=== PATIENT | female | born 1955 | race Caucasian/White ===

== ENCOUNTER → 2021-07-14 14:22 | Outpatient (BNVA) | payer MEDICARE, MEDICAID, SELFPAY | PROVIDERS: PCP Internal Medicine; Visit Provider Nurse Practitioner Family | DX: R25.1 Tremor, unspecified (principal); R53.1 Weakness; E34.8 Other specified endocrine disorders | CPT/HCPCS: 99212 ==

== ENCOUNTER → 2022-01-21 13:34 | Outpatient (BNVA) | payer OTHER, SELFPAY | PROVIDERS: PCP Internal Medicine; Visit Provider Nurse Practitioner Family | DX: R25.1 Tremor, unspecified (principal); R53.1 Weakness | CPT/HCPCS: 99212 ==

== ENCOUNTER → 2022-09-29 14:19 | Outpatient (BNVA) | payer OTHER, SELFPAY | PROVIDERS: PCP Internal Medicine; Visit Provider Nurse Practitioner Family | DX: R25.1 Tremor, unspecified (principal) | CPT/HCPCS: 99212 ==

== ENCOUNTER 2023-05-15 13:55 | Outpatient (AMB) | payer OTHER, SELFPAY ==
--- NOTE | 2023-05-15 13:59 | A.OFFVIS_ITS ---
Intake Vital Signs 05/15/23 13:59 05/15/23 14:04 Height 4 ft 10 in 4 ft 10 in Weight 181 lb BMI 37.8 Pulse 93 Pulse Source Pulse Oximeter Pulse Oximetry (%) 97 Oxygen Delivery Method Room Air Intake Visit Reasons: 6m follow up-Confirmed Intake Note: Patient presents for 6 month follow up. no issues or concerns today Allergies acetaminophen [From Percocet] Allergy (Mild, Verified 05/15/23 14:01) Unknown azithromycin Allergy (Mild, Verified 05/15/23 14:01) Unknown cefuroxime Allergy (Mild, Verified 05/15/23 14:01) Unknown Iodinated Contrast Media Allergy (Mild, Verified 05/15/23 14:01) Unknown oxycodone [From Percocet] Allergy (Mild, Verified 05/15/23 14:01) Unknown Penicillins Allergy (Mild, Verified 05/15/23 14:01) Unknown red dye Allergy (Mild, Verified 05/15/23 14:01) Rash tramadol Allergy (Mild, Verified 05/15/23 14:01) Unknown erythromycin base Allergy (Verified 05/15/23 14:01) Unknown Medication List - Last Reconciled 05/15/23 by Flory Gillette, EMEKA albuterol sulfate 90 mcg/actuation (Ventolin HFA) 2 puffs inhalation Q4-6H PRN albuterol sulfate mg inhalation fluticasone propionate 50 mcg/actuation 1 spray intranasal DAILY levothyroxine 75 mcg PO DAILY loratadine 10 mg PO DAILY mecobalamin (vitamin B12) 1,000 mcg PO DAILY metformin 500 mg PO BID sertraline 50 mg PO DAILY simvastatin 5 mg PO DAILY HPI HPI Comments History of Present Illness Details 67-yr-old female presents for f/u visit of tremor and headache. In early Apr, had a brief Hosp eval for the Flu. States she is feeling better now. She states she has been dx'd w/ DM type II- managed on metformin and advised to lose weight. States she does not eat many things. States she cannot eat vegetables- she is allergic to all vegetables . She shares a handwritten list of her extensive allergy testing results. Has not seen an department head college or university in some time. She is nervous to see an department head college or university because every time they do testing, she is told that she cannot eat even more food. Also new dx of HLD- started on low dose statin. Her thyroid supplement was also adjusted. She has a [employer] who helpd w/ cooking and housework. Sometimes she will notice her BUE hand/arms shake, more on the right. She notes that if she bends over to tie her shoe, her right arm will start shaking even before trying to tie her shoe. She is able to tie her shoe. Head tremor/jerks at times. Neck is not as tight, but may click w/o pain at times.. Her legs may be jumpy- especially if stressed. Sometimes has nocturnal leg cramp- from feet upwards- that resolves w/ ROM and walking. Sometimes can have leg pain f/b low back pain if she stands for too long and is not keeping her back straight. She is trying to stay active- even when watching TV she is trying to do other things/activities. Has noticed that she can start to doze off when inactive even though she sleeps well at night, can wake up gasping, may snore, has had difficulty breathing through her nose for a long time. Has never had a sleep study. Also walking and doing neck, BUE/BLE exercises, using a 5lb weight for some UE exercises. [facility] Medical History (Updated 05/15/23 @ 16:21 by EMEKA Noble) HLD (hyperlipidemia) Diabetes mellitus, type II TERESSA (generalized anxiety disorder) Surgical History History of hysterectomy History of eye surgery History of bilateral carpal tunnel release History of cholecystectomy Family History Father No problems noted. Mother Parkinsons Social History Alcohol intake: never Patient Tobacco Use Status: Never used Tobacco Questionnaire [place] Sleepiness Scale Questions Sitting and reading: high chance of dozing Watching TV: high chance of dozing Sitting inactive in a theater, movie etc.: high chance of dozing As a passenger in a car for an hour without break: would never doze Lying down in the afternoon when circumstances permit: high chance of dozing Sitting and talking to someone: would never doze Sitting quietly after lunch without alcohol: high chance of dozing In a car, while stopped for a few minutes in the traffic: would never doze ESS < 10: normal, ESS > 12: pathologic: 15 Physical Exam Vital Signs: Last Vital Signs Pulse 93 05/15/23 14:04 Pulse Ox 97 05/15/23 14:04 Oxygen Delivery Method Room Air 05/15/23 14:04 BMI result Body Mass Index 37.8 Const General: cooperative and no acute distress Orientation/consciousness: patient oriented x3 Resp Effort & Inspection: normal respiratory effort and able to speak in complete sentences Neuro Other: A&O x's 3 BUE R > L postural tremor. mild intermittent LLE rest tremor. FFM- mildly decreased Foot taps- decreased w/ poor fluidity. Foot taps ok. Gait steady gait. General: patient oriented x3 Cranial nerves: Yes CN's II-XII intact bilaterally Cognition (Neuro): normal cognition Psych Appearance: grossly normal Mental Status: mental status grossly normal Speech and movement: Normal speech and movement present Affect: normal affect Attitude: cooperative Assessment & Plan Assessment & Plan (1) Tremor: Code(s): R25.1 - Tremor, unspecified (2) Snoring: Code(s): R06.83 - Snoring (3) Excessive daytime sleepiness: Code(s): G47.19 - Other hypersomnia (4) Obesity, Class II, BMI 35-39.9: Code(s): E66.9 - Obesity, unspecified (5) Multiple food allergies: Code(s): Z91.018 - Allergy to other foods (6) Environmental allergies: Code(s): Z91.09 - Other allergy status, other than to drugs and biological substances Plan Patient is advised to undergo home sleep study to assess for sleep apnea in setting interval weight gain, new diagnosis of diabetes and hyperlipidemia, new excessive daytime sleepiness w/ ESS 15. Will take the liberty of referring the patient for a new allergy consult, as her nasal symptoms may be contributing to her difficulty breathing through her nose symptoms, and her dietary restrictions may be impacting her weight management. Continue home exercise program. Monitor tremor, bradykinesia. Patient is not interested in trying any tremor or dopaminergic therapy at this point. Follow-up upon review of above, and in clinic in 6 months or sooner as needed Orders: Orders RT home sleep study Today E66.9 - Obesity, unspecified, G47.19 - Other hypersomnia, R06.83 - Snoring Referrals Allergy & Immunology Referral E11.9 - Type 2 diabetes mellitus without com plications, E78.5 - Hyperlipidemia, unspecified, Z91.018 - Allergy to other foods, Z91.09 - Other allergy status, other than to drugs and biological substances Coding Level of Care Code Est Pt Level 4 (76817) Diagnoses Tremor R25.1 Snoring R06.83 Excessive daytime sleepiness G47.19 Obesity, Class II, BMI 35-39.9 E66.9 Multiple food allergies Z91.018 Environmental allergies Z91.09
[2023-05-15 14:04] VITALS: PULSE 93; O2SAT 97; BMI 37.8
== END 2023-05-15 15:15 | disposition home or self-care (01) ==
PROVIDERS: PCP Student in an Organized Health Care Education/Training Program; Visit Provider Nurse Practitioner Family
DX: R25.1 Tremor, unspecified (principal); R06.83 Snoring; G47.19 Other hypersomnia; E66.9 Obesity, unspecified; Z91.018 Allergy to other foods; Z91.09 Other allergy status, other than to drugs and biological substances
CPT/HCPCS: 99214

== ENCOUNTER → 2023-05-15 13:55 | Outpatient (BNVA) | payer OTHER, SELFPAY | PROVIDERS: PCP Student in an Organized Health Care Education/Training Program; Visit Provider Nurse Practitioner Family | DX: R25.1 Tremor, unspecified (principal); R06.83 Snoring; G47.19 Other hypersomnia; E66.9 Obesity, unspecified; Z91.018 Allergy to other foods; Z91.09 Other allergy status, other than to drugs and biological substances; Z68.37 Body mass index [BMI] 37.0-37.9, adult | CPT/HCPCS: 99212 ==

== ENCOUNTER 2024-11-07 15:05 | Outpatient (AMB) | payer OTHER, SELFPAY ==
--- NOTE | 2024-05-29 13:17 | MHC.OFFVIS ---
Intake Visit Reasons: 6 mo f/u- Allergies acetaminophen [From Percocet] Allergy (Mild, Verified 05/15/23 14:01) Unknown azithromycin Allergy (Mild, Verified 05/15/23 14:01) Unknown cefuroxime Allergy (Mild, Verified 05/15/23 14:01) Unknown Iodinated Contrast Media Allergy (Mild, Verified 05/15/23 14:01) Unknown oxycodone [From Percocet] Allergy (Mild, Verified 05/15/23 14:01) Unknown Penicillins Allergy (Mild, Verified 05/15/23 14:01) Unknown red dye Allergy (Mild, Verified 05/15/23 14:01) Rash tramadol Allergy (Mild, Verified 05/15/23 14:01) Unknown erythromycin base Allergy (Verified 05/15/23 14:01) Unknown [facility] Medical History (Updated 05/15/23 @ 16:21 by MEEKA Noble) HLD (hyperlipidemia) Diabetes mellitus, type II TERESSA (generalized anxiety disorder) Surgical History History of hysterectomy History of eye surgery History of bilateral carpal tunnel release History of cholecystectomy Family History Father No problems noted. Mother Parkinsons Social History Alcohol intake: never Patient Tobacco Use Status: Never used Tobacco Coding
--- OUTSIDE RECORDS SUMMARY | 2024-10-21 05:52 | XMS_ITS | Continuity of Care Document ---
Author Organization [facility] Address [address] [place] [address] [address] [place] [phone] Phone Care Team Providers Care Principal Account Clerk Name Role Phone Anmol WANG, VEL, Arun SHELLEY Unavailable U navailable Procedures Procedure Date Offic Cons New/estab Mod 40 Mi- CT & [place] Surgical Stockings Juxlite Knee 025 Duplex Scan-extrem Veins; Comp- CT & [place] Advance Directives Directive Yes / No Effective Date File Name No Information Encounters Encounter Description Practice Location Reason(s) For Visit Diagnoses Date Provider Providers Copied on Encounter [facility], [address] [place] [address] [address]Jean Marie [place], [id number], [place] tel:[phone] [facility] No Information 5 Anmol WANG, KARSTEN CROWDER. [address] [facility] [address], [place], [place], [id number] , [place]. tel:[phone] Offic Cons New/estab Mod 40 Mi- CT & [place] [facility], [address] [place] [address] [address]Jena Marie [place], [id number], [place] tel:[phone] [facility] - [facility] Pain in right lower legPain in left lower legLocalized edemaCramp and spasmType 2 diabetes mellitus without complicationsRe stless legs syndromePruritu s, unspecified 5 Anmol WANG RVT, KARSTEN Dias. [address] [facility], [address], [place], [place], [id number] , [place]. tel:[phone] Referring Provider: Tavares Jonas PA-C, [address] [facility] [address], [place], [address]. tel:[phone] [facility], [address] [facility] [address], [place], [id number], [place] tel:[phone] [facility] - [facility] Chronic venous hypertension (idiopathic) with other complications of bilateral lower extremity 5 Anmol WANG RVT, KARSTEN Dias. [address] [facility], [address], [facility] [place], [id number] , [place]. tel:[phone] Referring Provider: Tavares Jonas PA-C, [address] [facility] [address], [place], [address]. tel:[phone] Family History Family Member Type Diagnosis Age At Onset No Information Payers Payer name Insurance type Covered republican ID Katina gonsales(s) [facility] CI [id number] Social History Type Description Quantity Date Captured Comments Alcohol Use Details Unknown Caffeine Use Details Unknown Tobacco Use Status No Information Smoking Status No Information Sex Female Chief Complaint And Reason For Visit No Information Reason For Referral Reason For Referral No Information Plan Of Treatment Date Type Action Status Goal Diet education completed Referral Ordered: Weight management: Referral to physician timeframe: 3 Months (related to Body mass index (BMI) 37.0-37.9, adult) ordered Appointment Ema Ford BOOKED Appointment Ema Ford BOOKED Appointment Ema Ford BOOKED Appointment Ema Ford BOOKED Appointment Ema Ford BOOKED Appointment Ema Ford BOOKED Appointment Ema Ford BOOKED History Of Present Illness Encounter Date Complaint History Of Prese nt Illness No Information Functional Status Date Functional Assessmen t No Information Instructions Date Instruction Additional Infor mation Diet education Related to Body mass index (BMI) 37.0-37.9, adult Giving Encouragement to exercise Related to Body mass index (BMI) 37.0-37.9, adult Lifestyle education Related to B sagar mass index (BMI) 37.0-37.9, adult Patient education booklet given Related to Pain in right lower leg Pre and post instruc tions reviewed and provided Related to Pain in right lower leg Assessments Type Assessment Date No Information Patient Care Teams Name Effective Dates (start - stop) Status Members No Information
[2024-11-07 15:10] VITALS: PULSE 98; O2SAT 97; BMI 37.6
--- NOTE | 2024-11-07 15:10 | A.OFFVIS_ITS ---
Vital Signs 11/07/24 15:10 Height 4 ft 10 in Weight 180 lb BMI 37.6 Pulse 98 Pulse Source Pulse Oximeter Pulse Oximetry (%) 97 Oxygen Delivery Method Room Air Intake Visit Reasons: 6 mo f/u- Intake Note: Patient presents for follow up Tremor/Sleep. HST CX per provider. Allergy not scheduled to ins. Patients states at time she is getting cramps and cant go back to bed. tremors are about the same. Accompanied by: Self / Same As Patient Allergies acetaminophen (From Percocet) Allergy (Mild, Verified 11/07/24 15:17) Unknown azithromycin Allergy (Mild, Verified 11/07/24 15:17) Unknown cefuroxime Allergy (Mild, Verified 11/07/24 15:17) Unknown Iodinated Contrast Media Allergy (Mild, Verified 11/07/24 15:17) Unknown oxycodone (From Percocet) Allergy (Mild, Verified 11/07/24 15:17) Unknown Penicillins Allergy (Mild, Verified 11/07/24 15:17) Unknown red dye Allergy (Mild, Verified 11/07/24 15:17) Rash tramadol Allergy (Mild, Verified 11/07/24 15:17) Unknown erythromycin base Allergy (Verified 11/07/24 15:17) Unknown HPI Comments Details: 68-yr-old female presents for f/u visit of tremor and headache. Since the last visit, pt reports she underwent bilateral cataract replacement w/o complication. Vision improved, but still needs reading glasses. She now has an drier belt conveyor- Laurel Tripathi, and is undergoing allergy shots. She states that she is now able to eat more foods. 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 Also seeing ortho for BLE knee pain/effusions, recently started PT. Notes arthritis in back, knees, hips- more so in right knee. Now seeing vascular for BLE swelling, pain- states testing showed vascular stenosis - was advised to wear compression stocking. Reports her blood sugars are well-managed on metformin. Compliant w/ statin for HLD Compliant w/ her thyroid supplement. Sometimes she will notice her BUE hand/arms shake, more on the right. May notice some times more than others, especially with action. She states hse tries to control it by practising writing and playing games. Head tremor/jerks or legs shake at rest at times. Neck is not as tight, but may click w/o pain at times. Her legs may be jumpy- especially if stressed. Sometimes has nocturnal leg cramps a couple times a week- from feet upwards- that resolves w/ drinking hot water, stretching, and walking. She is trying to stay active throughout the day. Balancing standing too long as this causes BLE pain/swelling, but sitting too long causes hip pain. May still doze off when inactive even though she sleeps well at night- though she now thinks this is d/t her medications. She can wake up gasping, may snore, has had difficulty breathing through her nose for a long time. Has never had a sleep study. Also walking and doing PT, BUE/BLE exercises, using a 5lb weight for some UE exercises. Reports her headaches come and go. [facility] Medical History (Updated 11/07/24 @ 15:22 by VANESSA Louis) Arthritis HLD (hyperlipidemia) Diabetes mellitus, type II TERESSA (generalized anxiety disorder) Surgical History (Updated 11/07/24 @ 15:19 by VANESSA Louis) History of cataract surgery History of hysterectomy History of eye surgery History of bilateral carpal tunnel release History of cholecystectomy Family History Father No problems noted. Mother Parkinsons Social History Alcohol intake: never Patient Tobacco Use Status: Never used Tobacco Physical Exam Vital Signs: Last Vital Signs Pulse 98 11/07/24 15:10 Pulse Ox 97 11/07/24 15:10 Oxygen Delivery Method Room Air 11/07/24 15:10 BMI result Body Mass Index 37.6 Const General: cooperative and no acute distress Orientation/consciousness: patient oriented x3 Resp Effort & Inspection: normal respiratory effort and able to speak in complete sentences Neuro Other: A&O x's 3 Facial expression and blink intact BUE R > L postural tremor BUE L > R tone FFM- mildly decreased, more so on left Foot taps- decreased, more so on left Slow to stand, steady gait. General: patient oriented x3 Cranial nerves: Yes CN's II-XII intact bilaterally Cognition (Neuro): normal cognition Psych Appearance: grossly normal Mental Status: mental status grossly normal Speech and movement: Normal speech and movement present Affect: normal affect Attitude: cooperative Assessment & Plan Assessment & Plan (1) Tremor: Code(s): R25.1 - Tremor, unspecified Category: Medical (2) Snoring: Code(s): R06.83 - Snoring Category: Medical (3) Excessive daytime sleepiness: Code(s): G47.19 - Other hypersomnia Category: Medical (4) Obesity, Class II, BMI 35-39.9: Code(s): E66.9 - Obesity, unspecified Category: Medical Plan Patient asks to hold home sleep study for now. Follow-up w/ allergy, vascular, and ortho as scheduled. Continue PT and home exercise program. Monitor tremor, bradykinesia. Patient is not interested in trying any tremor or dopaminergic therapy at this point. Follow-up upon review of above, and in clinic in 9 months or sooner as needed Coding Level of Care Code Est Pt Level 3 (69208) Diagnoses Tremor R25.1 Snoring R06.83 Excessive daytime sleepiness G47.19 Obesity, Class II, BMI 35-39.9 E66.9
--- OUTSIDE RECORDS SUMMARY | 2024-11-07 15:10 | XMS_ITS | Data Portability ---
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 also recommend she present to the emergency department for any new or worsening severe symptoms such as chest pain, shortness of breath, high fever, altered mental status. The patient was given the opportunity to ask questions and is agreeable to this plan. [facility] Medication Orders: levofloxacin 500 mg tablet: Administered .................... .................... .................... .................... .................... .................... .................... . [facility] Consulted: Efraín Roe .................... .................... .................... .................... .................... .................... .................... . Disposition: Fulfilled Efraín Roe MD [address] [place] [address] [place], [place], [address], [employer] CogniscanNATASHA RODRIGES 06/25/2024 13:15:54 OBGyn Episode No OBEpisode recorded.
--- OUTSIDE RECORDS SUMMARY | 2024-11-07 15:10 | XMS_ITS | Encounter Summary ---
Author Organization [facility] Address [address] [place] [address] [address], [place] [address] Care Team Providers Care Hydraulic Specialist Name Role Phone Unavailable Primary Care Provider Unavailabl e Encounter Details Date Type Department Care Team (Latest Contact Info) Description 10/09/2018 Abstract [facility] CONVERSIONS Dental, Provider, DDS Social History Tobacco Use Types Packs/Day Years Used Date Smoking Tobacco: Never Assessed Comments Unknown Sex and Gender Information Value Date Recorded Sex Assigned at Female 02/14/2022 10:23 AM EDT Legal Sex Female 10:23 AM EDT Gender Identity Female 02/14/2022 10:23 AM EDT Sexual Orientation Straight 02/14/2022 10 :23 AM EDT documented as of this encounter Plan of Treatment Upcoming Encounters Date Type Department Care Team (Late st Contact Info) Description 12/06/2024 1:30 PM EDT Office Visit [facility] [address] [place] [address] Alexis, Wes [address] [place] [address] 02/14/2025 3:00 PM EDT Office Visit [facility] [address] [place] [address] Garry Durand documented as of this encounter Visit Diagnoses Not on filedocumented in this encounter
--- OUTSIDE RECORDS SUMMARY | 2024-11-07 15:10 | XMS_ITS | Clinical Summary ---
Author Organization [facility] Address [address] [address] Phone Care Team Providers Care Measurement And Verification Engineer Name Role Phone Pcp, Not Required Primary Care Provider Unavaila ble Allergies Active Allergy Reactions Criticality Noted Date Comments Alcohol, Unspecified 01/03/2019 Aspirin 01/03/2019 Clarithromycin 01/03/2019 Cefuroxime Axetil Medium 03/28/2014 Other reaction(s): Respiratory Distress Coconut 07/26/2013 Other reaction(s): Respiratory Distress Egg 01/03/2019 Erythromycin 01/03/2019 Fish Containing Products 01/03/2019 Influenza Virus Vaccines Angioedema 07/26/2013 Latex, Natural Rubber 01/03/2019 Lemon 12/27/2019 Soap 01/03/2019 [place] 01/03/2019 Other 01/03/2019 Certain dyes , cough syrup , cefuroxime Peanut 01/03/2019 Penicillins Angioedema 07/26/2013 Oxycodone-Acetaminophen 01/03/2019 Red Dye 12/27/2019 Soy 12/27/2019 Soybean Extract-Soy Isoflavone 01/03/2019 Tomato 12/27/2019 Tramadol Nausea Only 01/03/2019 Wheat 01/03/2019 Medications levothyroxine (TIROSINT) 88 mcg Cap 88 mcg daily. Active loratadine (CLARITIN) 10 mg tablet Take 10 mg by mouth daily. Active sertraline (ZOLOFT) 50 MG tablet Take 50 mg by mouth daily. Active fluticasone propionate (FLONASE) 50 mcg/actuation nasal spray 1 spray by Nasal route daily. Active calcium carbonate-vitam in D3 1,250 mg (500 mg elemental)-400 units per tablet Take 1 tablet by mouth daily. Active cholecalciferol (VITAMIN D3) 25 MCG (1,000 unit) tablet Take 1,000 Units by mouth daily. Active acetaminophen (TYLENOL) 325 mg tablet Take 650 mg by mouth every 6 (six) hours as needed for mild pain. Active triamcinolone acetonide 0.025 % ointmentIndicat ions:Chronic vulvitis Apply small pea sized amount to affected area 2-3 nights a week. 15 g 1 07/19/2021 Active Active Problems Problem Noted Date Diagnosed Date Chronic vulvitis 01/03/2019 Assessment & Plan (01/18/2021 3:48 PM EDT): Continues to have intermittent relief from prn triamcinolone ointment. Assessment & Plan (12/29/2019 10:15 AM EDT): No evidence of vulvar dystrophy or dermatitis. Mild distal labial and perianal erythema may be secondary to chronic pad use for intermittent incontinence. Patient states she has good relief of symptoms with triamcinolone 0.25% ointment twice daily PRN. I have suggested to try to be bare at night without a pad to possibly reduce moisture on the skin. I have also suggested possibly thin film of Vaseline or water based lubricant on pad to minimize abrasion of skin. Follow-up PRN/1 year for Medicare annual. Assessment & Plan (01/03/2019 2:15 PM EDT): Infrequent itching and irritation inferior labia. No skin lesions present. Seems likely due to daily pad use for incontinence. Will continue to use triamcinolone ointment twice daily as needed. 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 but there was uterine perforation at time of surgery Immunizations Immunization Administration Dates Next Due Influenza Trivalent w/ Preservative IM 3 Td (adult),2 Lf Tetanus Toxoid, PF, Adsorbed Tdap 08/07/2012 Family History Medical History Relation Comments Liver disease Father Cancer Maternal Grandfather Alzheimer's disease Maternal Grandmother Alzheimer's disease Mother Parkinson's disease Mother in nursing h ome; 2019 age 79 No Known Problems Paternal Grandmother Relation Status Comments Father Maternal Grandfather Maternal Grandmother Mother Paternal Grandmother Social History Tobacco Use Types Packs/Day Years Used Date Smoking Tobacco: Never Smokeless Tobacco: Never Alcohol Use Standard Drinks/Week Comments Not Currently 0 (1 standard drink = 0.6 oz pur e alcohol) Education Answer Date Recorded Are you interested in more education? Not on spring e 08/12/2022 Are you concerned about learning? Not on file 08/12/2022 No 08/12/2022 No 08/12/2022 Digital Access Answer Date Recorded No 09/13/2022 No 09/13/2022 No 09/13/2022 Reliable internet access at home? Not on file 09/13/2022 Device with a working camera? Not on file Comments No Sex and Gender Information Value Date Recorded Sex Assigned at Not on file Legal Sex Female 2:39 PM EDT Gender Identity Not on file Sexual Orientation Not on file Last Filed Vital Signs Vital Sign Reading Time Taken Comments Blood Pressure 122/68 01/18/2021 12:02 PM EDT Pulse - - Temperature - - Respiratory Rate - - Oxygen Saturation - - Inhaled Oxygen Concentration - - Weight 77.1 kg (170 lb) 01/18/2021 12:02 PM EDT Height 147.3 cm (4' 10 ) 01/18/2021 12:02 PM EDT Body Mass Index 35.53 01/18/2021 12:02 PM EDT Plan of Treatment Health Maintenance Due Date Last Done Comments LIPID PANEL 1956 TSH LEVEL 1956 DEPRESSION SCREENING 1968 HEPATITIS C SCREENING 1974 COLOGUARD 2001 COLONOSCOPY 2001 COLORECTAL CANCER SCREENING 2001 FIT TEST 2001 FOBT 2001 SIGMOIDOSCOPY 2001 VIRTUAL COLONOSCOPY 2001 PNEUMOCOCCAL VACCINES (50+ years) (1 of 1 - PCV) 2006 ZOSTER VACCINES (1 of 2) 2006 MAMMOGRAM 02/21/2021 02/21/2019 OSTEOPOROSIS SCREENING INITI AL (ONE-TIME) 2021 Adult Td,Tdap Booster 08/07/2022 08/07/2012 , 02/03/1999 COVID-19 VACCINE (2023-2 5 season) 2023 RSV VACCINE (1 - 1-dose 75+ series) 11/21/2031 SMOKING STATUS SCREENING (On ce After 26 Yrs) Completed 12/27/2019 HEPATITIS A VACCINES Aged Out No long er eligible based on patient's age to complete this topic HIB VACCINES Aged Out No longer eligi ble based on patient's age to complete this topic MENINGOCOCCAL VACCINES (ACWY) Aged Out No longer eligible based on patient's age to complete this topic MENINGOCOCCAL VACCINES (B) Aged Out N o longer eligible based on patient's age to complete this topic Medical Devices Not on file Procedures Procedure Name Priority Date/Time Associated Diagnosis Comments MAMMOGRAPHY Routine 02/21/2019 from Last 3 Months or Most Recently Relevant to Health Maintenance Results * MAMMOGRAPHY FOR RESULT ENTRY ONLY (02/21/2019) Naz Castillo MD HEALTH MAINTENANCE Final Result from Last 3 Months or Most Recently Relevant to Health Maintenance Insurance MEDICARE PART A & B Member Subscriber Plan / Payer (Ef fective 2009-Present) Name:Ema Ford Member ID:[id number] Relation to Subscriber:Self Name:Ema Ford Subscriber ID:[id number] Payer ID:[id number] Group ID:Not on file Type:Medicare Address: [facility] [employer] [facility] [address] [facility] [place] [address] [facility] MEDICARE PART A & B HEALTH MEDICARE PART A & B HEALTH MEDICARE PART A & B [employer] [facility] PART [facility] & [facility] Care Teams Measurement And Verification Engineer Relationship Specialty Start Date End Date Pcp, Not Required [address] [place] [id number] PCP - General 02/12/18 Additional Source Comments The information contained in this document represents components of the legal health record. It is not the complete legal health record.[facility]
== END 2024-11-07 16:30 | disposition home or self-care (01) ==
LOC: HO.HSMS 15:06
PROVIDERS: PCP Student in an Organized Health Care Education/Training Program; Visit Provider Nurse Practitioner Family
DX: R25.1 Tremor, unspecified (principal); R06.83 Snoring; G47.19 Other hypersomnia; E66.9 Obesity, unspecified
CPT/HCPCS: 99213

== ENCOUNTER → 2024-11-07 15:05 | Outpatient (BNVA) | payer OTHER, SELFPAY | PROVIDERS: PCP Student in an Organized Health Care Education/Training Program; Visit Provider Nurse Practitioner Family | DX: R25.1 Tremor, unspecified (principal); G47.19 Other hypersomnia; R06.83 Snoring; E66.812 Obesity, class 2; Z68.37 Body mass index [BMI] 37.0-37.9, adult | CPT/HCPCS: 99212 ==